=== PATIENT | male | born 1960 | race Caucasian/White ===

== ENCOUNTER 2023-09-11 21:47 | Emergency (ER) | payer OTHER, SELFPAY ==
--- NOTE | ~2023-09-11 | CT_ITS ---
EXAMINATION: CT brain wo con DATE: 09/11/2023 22:11 INDICATION: Head injury. TECHNIQUE: Computed tomography (CT) of the head was performed without intravenous contrast. The mA wa s adjusted according to patient size. Iterative reconstruction technique was employed. The dose-lengt h product was 605.33 mGy-cm. COMPARISON: None FINDINGS: There is no intracranial hemorrhage, acute infarction, or abnormal intracranial mass lesion . The ventricles are normal in size. There are likely changes of ocular lens replacement surgeries. T here are changes of left-sided scleral banding procedure. There is a 3 mm density in right ocular lob e that may be an implant. The mastoid air cells are normal. There is cerumen in left clinical appeals auditor y canal. There is mild mucosal thickening in the paranasal sinuses. There are old fracture deformitie s of the nasal bones. There is right-sided scalp soft tissue swelling. IMPRESSION: 1. Normal brain. Reviewed, dictated and finalized at location E. [facility] IMPRESSION: 1. Normal brain.
--- NOTE | ~2023-09-11 | CT_ITS ---
EXAMINATION: CT cervical spine wo con DATE: 09/11/2023 22:11 INDICATION: Head injury. TECHNIQUE: Computed tomography (CT) of the cervical spine was performed without intravenous contrast. Automated exposure control and iterative reconstruction technique were employed. The dose-length pro duct was 239.68 mGy-cm. COMPARISON: None FINDINGS: There is a 5 mm nodule in right thyroid lobe, likely not clinically significant. There is 2 mm retrolisthesis of C3 on C4. There is mild chronic anterior wedging of T1. There is a compression fracture of T3 with less than 1/5 loss of height. There is moderately decreased disc height at C2-C3, severely decreased disc height at C3-C4, moderately decreased disc height at C4-C5, severely decreas ed disc height at C5-C6, and moderately decreased disc height at C6-C7. The following disc levels are specifically discussed: C2-C3: There is mild right and moderate left uncovertebral joint osteoarthritis. There is mild right and severe left facet joint osteoarthritis. There is mild left neural foraminal stenosis. There is no central canal stenosis. C3-C4: There is severe right and mild left uncovertebral joint osteoarthritis. There is severe bilate ral facet joint osteoarthritis. There is mild bilateral neural foraminal stenosis. There is mild cent ral canal stenosis. C4-C5: There is moderate right and severe left uncovertebral joint osteoarthritis. There is severe bi lateral facet joint osteoarthritis. There is mild right and moderate left neural foraminal stenosis. There is mild central canal stenosis. C5-C6: There is severe bilateral uncovertebral joint osteoarthritis. There is moderate and severe lef t facet joint osteoarthritis. There is moderate right and mild left neural foraminal stenosis. There is mild central canal stenosis. C6-C7: There is mild right and severe left uncovertebral joint osteoarthritis. There is moderate bila teral facet joint osteoarthritis. There is mild left neural foraminal stenosis. There is mild central canal stenosis. C7-T1: There is no uncovertebral joint osteoarthritis. There is moderate right and severe left facet joint osteoarthritis. There is mild left neural foraminal stenosis. There is no central canal stenosi s. IMPRESSION: 1. Age-indeterminate T3 compression fracture. 2. Severe cervical spondylosis. Reviewed, dictated and finalized at location [facility]
[2023-09-11 21:47] VITALS: BP 104/75; PULSE 71; RESP 20; TEMP 36.4; O2SAT 100
[2023-09-11 22:00] VITALS: BP 107/71; PULSE 60; O2SAT 96
--- NOTE | 2023-09-11 23:20 | ED_ITS ---
HPI - Fall General Chief Complaint: Fall Stated Complaint: fall History of Present Illness HPI Narrative: Patient brought to the emergency department by EMS. He fell out of bed. He is on Eliquis. Patient currently denies concerns although has mild generalized pain of his left arm. Denies any headache Related Data Allergies Allergy/AdvReac Type Severity Reaction Status Date / Time No Known Allergies Allergy Verified 09/11/23 21:54 Review of Systems Review of Systems: negative except for what is documented in the HPI Exam Narrative: GENERAL: Well-appearing, well-nourished, and in no acute distress. HEAD: Normocephalic, atraumatic. EYES: PERRLA and EOMI. ENT: Nares clear, no rhinorrhea or epistaxis. Mucous membranes moist. NECK: Supple. CHEST: Clear to auscultation. No respiratory distress. HEART: Regular rate and rhythm. ABDOMEN: Soft, nontender, nondistended. EXTREMITIES: Normal range of motion. No edema. SKIN: Warm, dry, no rash. NEURO: No focal deficits. Alert and oriented x3. PSYCH: Normal mood and affect. Course Course Emergency Course: differential diagnosis includes but not limited to subarachnoid hemorrhage subdural hemorrhage concussion Vital Signs Vital signs: Vital Signs Temperature 36.4 C L 09/11/23 21:47 Pulse Rate 71 09/11/23 21:47 Respiratory Rate 20 09/11/23 21:47 Blood Pressure 104/75 09/11/23 21:47 Pulse Oximetry 100 09/11/23 21:47 Oxygen Delivery Room Air 09/11/23 21:47 Temperature 36.4 C L 09/11/23 21:47 Pulse Rate 71 09/11/23 21:47 Respiratory Rate 20 09/11/23 21:47 Blood Pressure 104/75 09/11/23 21:47 Pulse Oximetry 100 09/11/23 21:47 Oxygen Delivery Room Air 09/11/23 21:47 Discharge Plan Discharge Clinical Impression: Acute head trauma Patient Disposition: [facility] Condition: Stable Instructions: Head Injury (ED) Follow-up/Referrals: Libia,MD Ashutosh [Primary Care Provider] - Time of Disposition: 00:23
[2023-09-12 01:04] VITALS: BP 104/69; PULSE 60; RESP 18; O2SAT 97
== END 2023-09-12 01:05 ==
PROVIDERS: Emergency Provider Emergency Medicine; PCP Internal Medicine
DX: S09.90XA Unspecified injury of head, initial encounter (principal); Z79.01 Long term (current) use of anticoagulants; M47.812 Spondylosis without myelopathy or radiculopathy, cervical region; W06.XXXA Fall from bed, initial encounter
CPT/HCPCS: 70450; 72125; 99284